=== PATIENT | female | born 1995 | race Caucasian/White ===

== ENCOUNTER 2018-09-16 18:03 | Emergency (ER) | payer OTHER ==
[~2018-09-16] VITALS: Ht 160 cm; Wt 68.9 kg
== END 2018-09-16 19:47 | disposition home or self-care (01) ==
LOC: ER 18:03
DX: S90.111A Contusion of right great toe without damage to nail, initial encounter (principal); W18.09XA Striking against other object with subsequent fall, initial encounter; Y93.89 Activity, other specified; Y92.59 Other trade areas as the place of occurrence of the external cause; Y99.8 Other external cause status